=== PATIENT | male | born 1955 | race African-American/Black ===

== ENCOUNTER 2022-08-08 04:03 | Day surgery (SDC) | payer OTHER ==
[2022-08-05 09:28] VITALS: BMI 29.8
[2022-08-08] MEDS ORDERED: MIDAZOLAM HCL 2 MG/2 ML SINGLE DOSE VIAL ONE (10:42)
[2022-08-08 11:31] VITALS: RESP 18; TEMP 97.3
[2022-08-08 11:43] VITALS: BP 150/83; PULSE 61
== END 2022-08-08 11:43 | disposition home or self-care (01) ==
LOC: JASU-SURG 04:03
PROVIDERS: ATTEND Urology
PROC: 0TF3XZZ Fragmentation in Right Kidney Pelvis, External Approach (ICD-10-PCS; principal; 2022-08-08 11:30)
DX: N20.0 Calculus of kidney (principal)